=== PATIENT | female | born 1975 | race Caucasian/White ===

== ENCOUNTER 2017-11-26 06:59 | Day surgery (SDC) | payer MEDICAID, SELFPAY ==
[2017-11-26] MEDS ORDERED: SCOPOLAMINE 1 PATCH TDSY TD ONE (07:00)
[2017-11-26] MEDS ORDERED: ONDANSETRON HCL IV 4 MG/2 ML VIAL IVP ONE (07:00)
[2017-11-26] MEDS ORDERED: SEVOFLURANE 250 ML INH ONE (07:00)
[2017-11-26] MEDS ORDERED: ROCURONIUM BROMIDE 50MG/5ML VIAL IV ONE (07:00)
[2017-11-26] MEDS ORDERED: HYDROMORPHONE HCL 2 MG/ML VIAL IV ONE (07:00)
[2017-11-26] MEDS ORDERED: MIDAZOLAM HCL 2MG/2ML VIAL IV ONE (07:00)
[2017-11-26] MEDS ORDERED: EPHEDRINE SULFATE 50 MG/ML ML IV ONE (07:00)
[2017-11-26] MEDS ORDERED: SUGAMMADEX SODIUM 200 MG/2 ML VIAL IV ONE (07:00)
[2017-11-26] MEDS ORDERED: BUPIVACAINE 0.75% W/EPI MPF 30ML VIAL IVP ONE (07:00)
[2017-11-26] MEDS ORDERED: PROPOFOL 10 MG/ML VIAL IV ONE (07:00)
[2017-11-26] MEDS ORDERED: SUFENTANIL CITRATE 50 MCG/ML AMPUL IV ONE (07:00)
[2017-11-26] MEDS ORDERED: DIAZEPAM 5 MG/1 ML TUBX IVP PRN (11:04)
[2017-11-26] MEDS ORDERED: ONDANSETRON HCL IV 4 MG/2 ML VIAL IVP PRN (11:04)
[2017-11-26] MEDS ORDERED: MORPHINE SULFATE 5 MG/ML PFS IVP PRN ×3 (11:04)
[2017-11-26] MEDS ORDERED: BUTALB/ACETAMINOPHEN/CAFFEINE TABLET PO PRN (11:07)
[2017-11-26] MEDS ORDERED: DIAZEPAM 5MG/ML **10ML VIAL IVP PRN (11:15)
[2017-11-26] MEDS: RINGERS SOLUTION,LACTATED 1,000 ML IV SCH ×2 (11:30→18:47)
[2017-11-26] MEDS ORDERED: RINGERS SOLUTION,LACTATED 1,000 ML IV PRN (11:59)
[2017-11-26] MEDS: TRAMADOL HCL 50 MG TABLET PO PRN ×2 (12:56→22:20)
[2017-11-26] MEDS: IBUPROFEN 400 MG TABLET PO PRN ×2 (12:58→22:17)
[2017-11-26] MEDS: DIAZEPAM 5 MG TABLET PO PRN ×2 (13:01→22:18)
[2017-11-26] MEDS: CEFAZOLIN 1 Gram 1 GM/50 ML BAG IVPB SCH ×2 (16:22→23:44)
[2017-11-27] MEDS: RINGERS SOLUTION,LACTATED 1,000 ML IV SCH ×2 (01:06→06:42)
[2017-11-27] MEDS: IBUPROFEN 400 MG TABLET PO PRN (06:10)
[2017-11-27] MEDS: TRAMADOL HCL 50 MG TABLET PO PRN ×2 (06:10→12:08)
[2017-11-27] MEDS: DIAZEPAM 5 MG TABLET PO PRN (07:46)
[2017-11-27] MEDS: CEFAZOLIN 1 Gram 1 GM/50 ML BAG IVPB SCH (07:46)
[2017-11-27] MEDS ORDERED: ENOXAPARIN 40 MG/0.4 ML SYR SQ SCH (10:00)
--- NOTE | 2017-11-27 12:31 | Operative Note ---
DATE OF SURGERY: 11/26/2017 PREOPERATIVE DIAGNOSES: 1. Umbilical hernia. 2. Abdominal wall deformity and severe diastasis recti. POSTOPERATIVE DIAGNOSES: 1. Umbilical hernia. 2. Abdominal wall deformity and severe diastasis recti. OPERATION: Abdominoplasty with plication. Surgeon: Travis Vora MD Anesthesia: General. Estimated Blood Loss: Minimal. DRAINS: 15 round Rodolfo. SPECIMENS: 900 g of tissue. Indication: The patient is a 42-year-old patient who has significant abdominal wall deformity which appears clinically to have a large ventral hernia and a very chronic umbilical hernia. I marked her in the standing position preoperatively for panniculectomy and explained to her because the umbilical hernia sac is pressed up against her umbilicus, it is more likely than note, quite frankly, that she was going to lose her umbilicus. PROCEDURE: She was then taken to the operating room and under satisfactory general anesthesia and all pressure points well padded and protected, PDS stockings were placed. Prepped and draped in the usual sterile manner. We circumscribed her umbilicus and the hernia sac. The hernia skin of the umbilicus was essentially the top of the hernia sac and had been thinned and attenuated. We then incised along the inferior border of the incision and raised the abdominal flap in a suprafascial plane leaving a layer of lymphatics and subcu on the fascia up around to expose the umbilicus and the umbilical hernia. At this point, Dr. Vincent came in anemia repaired the umbilical hernia. It should be noted that as expected, there was no way to salvage the skin which was essentially the top of the hernia sac. Upon completion of the hernia repair, we then elevated the flap to the xiphoid and costal margins. We then plicated very meticulously with a running 0 PDS and because she was so thin, making sure that we did not leave a large imprint. The plication essentially imbricated the hernia repair for another layer of protection. Upon completion of the abdominal wall plication, we placed subfascial 0.25% Marcaine 20 mL. Because of the significant plication that was needed, we had to elevate and immobilize more of the flaps laterally carefully so as not to devascularize them. We sat her up 45 degrees, proceeded with appropriate skin resection. Once we advanced the skin, it showed no signs of any tethering. We then placed a 15 round drain and secured it with nylon. We then closed temporarily, checked the symmetry of shape and location of the scar. We were able to excise a little bit more along the inferior midline, give her a flatter contour and bring the scar down even a little bit lower, and this was done. We then again closed temporarily by advancing lateral to medial. Once we had appropriate tension and a nice contour and symmetrical scar, we then closed with several interrupted Infrasorb dissolvable jocelyne 0.5 mm apart. We then completed closure with running subcuticular 3-0 Monocryl. Sterile dressings were applied. She tolerated procedure well without complication. YANN
== END 2017-11-27 12:42 | disposition home or self-care (01) ==
LOC: SUR 06:59 → MEDSURG 11:38 → SUR 11-27 12:42
PROVIDERS: ATTEND Plastic Surgery
DX: L98.7 Excessive and redundant skin and subcutaneous tissue (principal); M62.08 Separation of muscle (nontraumatic), other site; K42.9 Umbilical hernia without obstruction or gangrene
CPT/HCPCS: 15830; 00802; J3490 ×4; J2405; J0690 ×2; J1170; J1650; J7120

== ENCOUNTER 2017-11-26 08:30 | Day surgery (SDC) | payer MEDICAID ==
[2017-11-26 07:25] LABS: HEMATOCRIT 41.6 % (35.0-47.0); HEMOGLOBIN 13.7 gm/dl (11.6-16.0)
[~2017-11-26 08:30] MED LIST: ACETAMINOPHEN 1,000 MG/100 ML BTL IV ONE; CEFAZOLIN 2 Gram 2 GM/50 ML BAG IVPB ONE; FAMOTIDINE 20MG TABLET PO ONE; MECLIZINE 25 MG TABLET PO ONE; METOCLOPRAMIDE 10 MG TABLET PO ONE
--- NOTE | 2017-11-26 14:10 | Operative Note ---
This is a 2-part dictation. Please see Dr. Vora for his. DATE OF SURGERY: 11/26/2017 Surgeon: Tha Vincent DO PREOPERATIVE DIAGNOSIS: Umbilical hernia. POSTOPERATIVE DIAGNOSIS: Umbilical hernia. OPERATION: Open umbilical herniorrhaphy with mesh. Indication: The patient is a 42-year-old female who was undergoing abdominoplasty with Dr. Vora. She did have an umbilical hernia. I saw her in the office a couple of times. We did discuss repair; risks, benefits, and alternatives. Risks include bleeding, infection, acute or chronic pain, recurrence. She understood this fully. PROCEDURE: Therefore, Dr. Vora did start the case. He was nice enough to expose the entire abdominal wall. When I came in, anterior fascia was completely exposed. She did have an umbilical hernia sac exposed as well with an element of diastasis. We did excise the hernia sac. The hernia defect measured about 1.5 cm. At this time, an [address] mesh was obtained. This was placed in the intraperitoneal position. We had excellent overlap of the fascia. This was sutured in place with 2-0 Vicryl in 4 spots. She did tolerate the procedure well. The rest of the case was turned over to Dr. Vora. [facility]
== END 2017-11-27 12:42 | disposition home or self-care (01) ==
LOC: SUR 08:30
PROVIDERS: ATTEND Surgery
DX: K42.9 Umbilical hernia without obstruction or gangrene (principal); M54.9 Dorsalgia, unspecified
CPT/HCPCS: 49585; 00830; 85018; 85014; J0690